=== PATIENT | female | born 1995 | race African-American/Black ===

== ENCOUNTER → 2023-11-02 11:30 | Outpatient (REF) | payer OTHER, SELFPAY ==
[2023-11-03 15:58] LABS: Rubeola (Measles) IgG Positive; Varicella Zoster IgG (VZV) Positive
[2023-11-03 19:11] LABS: Hepatitis B Surface Antibody Negative
[2023-11-03 19:40] LABS: Rubella Positive
[2023-11-04 11:18] LABS: Mumps Virus IgG Positive
[2023-11-05 00:48] LABS: Quantiferon Mitogen minus NIL 9.84 IU/mL; Quantiferon NIL 0.16 IU/mL; Quantiferon Plus TB1 minus NIL 0.01 IU/mL (<=0.34); Quantiferon Plus TB2 minus NIL 0.03 IU/mL (<=0.34); Quantiferon TB Gold Plus Negative (Negative)
== END ==
LOC: REG 11:30
PROVIDERS: ATTENDING PHYSICIAN Nurse Practitioner
DX: Z23 Encounter for immunization (principal)
CPT/HCPCS: 36415; 86480; 86706; 86735; 86762; 86765; 86787